=== PATIENT | male | born 1980 | race Caucasian/White ===

== ENCOUNTER 2017-09-25 15:48 | Emergency (ER) | payer OTHER ==
[~2017-09-25] VITALS: Ht 188 cm; Wt 81.7 kg
[2017-09-25] MEDS ORDERED: KEFLEX500 M1 PO ×2 (17:04→17:08)
[2017-09-25] MEDS ORDERED: BACTROBAN CREAM30 G1 TOP (17:04)
[2017-09-25] MEDS ORDERED: HYDROCODONE-AP1 EAC6 PO (17:14)
[2017-09-25 17:24] VITALS: BP 118/89
== END 2017-09-25 17:27 | disposition home or self-care (01) ==
LOC: M.ERS 15:48
DX: T65.891A Toxic effect of other specified substances, accidental (unintentional), initial encounter (principal); T25.721A Corrosion of third degree of right foot, initial encounter; T32.0 Corrosions involving less than 10% of body surface; Y93.89 Activity, other specified; Y92.89 Other specified places as the place of occurrence of the external cause; Y99.0 Civilian activity done for income or pay; Z88.0 Allergy status to penicillin

== ENCOUNTER 2018-09-19 01:11 | Emergency (ER) | payer MEDICAID ==
[~2018-09-19] VITALS: Ht 188 cm; Wt 81.7 kg
[~2018-09-19 01:11] MED LIST: BACTROBAN CREAM30 G1 TOP; HYDROCODONE-AP1 EAC6 PO; KEFLEX500 M1 PO
[2018-09-19 01:40] LABS: ABSOLUTE BASOPHILS 0.1 thou/uL (0.0-0.2); ABSOLUTE EOSINOPHILS 0.3 thou/uL (0.0-0.7); ABSOLUTE LYMPHOCYTES 3.9 thou/uL (0.8-5.3); ABSOLUTE MONOCYTES 0.7 thou/uL (0.0-1.2); ABSOLUTE NEUTROPHILS 3.4 thou/uL (1.6-8.1); BASOPHILS 0.9 %; EOSINOPHILS 3.3 %; HEMATOCRIT 41.9 % (42.0-52.0); HEMOGLOBIN 14.4 gm/dL (14.0-18.0); LYMPHOCYTES 46.8 %; MCH 32.2 pg (26.0-34.0); MCHC 34.4 g/dL (28.0-37.0); MCV 93.5 fL (80.0-100.0); MONOCYTES 8.4 %; MPV 7.2 fl. (7.2-11.1); NUCLEATED RBCS 0 /100WBC; PLATELET COUNT* 202 thou/uL (150-400); POLYS 40.6 %; RBC 4.48 mil/uL (4.50-6.00); RDW-CV 12.9 % (10.5-14.5); WBC 8.3 thou/uL (4.0-11.0)
[2018-09-19 01:58] LABS: ALBUMIN 4.1 g/dL (3.4-5.0); ALKALINE PHOSPHATASE 49 U/L (46-116); ANION GAP 3 mmol/L (7-16); BUN 13 mg/dL (7-18); CALCIUM 9.4 mg/dL (8.5-10.1); CHLORIDE 106 mmol/L (98-107); CO2 32 mmol/L (21-32); CREATININE 1.2 mg/dL (0.6-1.3); GLUCOSE 104 mg/dL (70-99); POTASSIUM 4.9 mmol/L (3.5-5.1); SGOT 19 U/L (15-37); SGPT 12 U/L (30-65); SODIUM 141 mmol/L (136-145); TOTAL BILIRUBIN 0.2 mg/dL (<0.1-1.0); TOTAL PROTEIN 7.1 g/dL (6.4-8.2); TROPONIN-I LEVEL <0.06 ng/mL (<0.06)
[2018-09-19 02:56] VITALS: BP 102/72
--- NOTE | 2018-09-19 11:36 | EKG ---
[place] [address] ELECTROCARDIOGRAM REPORT Name: SORIN CLARKE Room: [facility]#: [id number] Admission: 09/19/18 Attend Phys: Discharge: 09/19/18 Date of : 76 Report #: [id number] THIS REPORT FOR: //name// [facility] Test Date: 2018-09-19 Test Time: 01:17:46 Pat Name: SORIN CLARKE Department: Room: Gender: M Facility Maintenance Manager: MERISSA : 1980 Requested By: Noelle Huang Order Number: [id number] MD: Alex Montiel Measurements Intervals [place] Rate: 61 P: 76 VT: 200 QRS: 93 QRSD: 108 T: 76 QT: 390 QTc: 393 Interpretive Statements Sinus rhythm Left posterior fascicular block Abnormal R-wave progression, late transition No previous ECG available for comparison Electronically Signed On 09-19-2018 11:36:50 [employer] by Alex Montiel [email or web address] <ELECTRONICALLY SIGNED> By: Alex Montiel MD, [facility] 09/19/18 1136 D: 02/116 6 Alex Montiel MD, FACC /EPI
== END 2018-09-19 02:58 | disposition home or self-care (01) ==
LOC: M.ERS 01:11
PROVIDERS: Personal Emergency Response Attendant
DX: S61.210A Laceration without foreign body of right index finger without damage to nail, initial encounter (principal); R07.89 Other chest pain; F17.210 Nicotine dependence, cigarettes, uncomplicated; Z88.0 Allergy status to penicillin; X58.XXXA Exposure to other specified factors, initial encounter; Y93.89 Activity, other specified; Y92.89 Other specified places as the place of occurrence of the external cause; Y99.8 Other external cause status

== ENCOUNTER 2018-09-22 12:24 | Emergency (ER) | payer MEDICAID ==
[~2018-09-22] VITALS: Ht 185.4 cm; Wt 81.7 kg
[2018-09-22 13:17] VITALS: BP 116/74
== END 2018-09-22 13:17 | disposition home or self-care (01) ==
LOC: M.ERS 12:24
DX: T81.31XA Disruption of external operation (surgical) wound, not elsewhere classified, initial encounter (principal); F17.210 Nicotine dependence, cigarettes, uncomplicated; Z48.01 Encounter for change or removal of surgical wound dressing; Z88.0 Allergy status to penicillin; Y84.8 Other medical procedures as the cause of abnormal reaction of the patient, or of later complication, without mention of misadventure at the time of the procedure; Y92.89 Other specified places as the place of occurrence of the external cause